=== PATIENT | female | born 1980 | race Caucasian/White ===

== ENCOUNTER 2022-07-25 07:38 | Outpatient (CLI) | payer BC, SELFPAY ==
[2022-07-25 08:16] LABS: Basophils Absolute Auto 0.1 K/mm3 (0.0-0.1); Basophils Percent Auto 1.1 % (0.2-1.2); Eosinophils Absolute Auto 0.1 K/mm3 (0-0.3); Eosinophils Percent Auto 2.4 % (0-4.4); Hematocrit 41.9 % (37.0-47.0); Hemoglobin 13.4 g/dL (12.0-15.0); Immature Granulocyte Absolute 0.01 K/mm3 (0.00-0.031); Immature Granulocyte Percent A 0.2 % (0-0.5); Lymphocytes Absolute Auto 1.32 K/mm3 (0.9-3.2); Lymphocytes Percent Auto 28.4 % (18.3-44.2); Mean Corpuscular Hemoglobin 29.3 pg (26-34); Mean Corpuscular Volume 91.5 fl (80-100); Mean Platelet Volume 8.8 fl (7.4-10.4); Monocytes Absolute Auto 0.4 K/mm3 (0.1-0.6); Neutrophils Absolute Auto 2.8 K/mm3 (1.3-6.7); Neutrophils Percent Auto 59.9 % (45.5-73.1); Platelet Count Result 314 k/mm3 (150-375); Red Blood Count 4.58 M/mm3 (4.2-5.4); Red Cell Distribution Width 14.5 % (11.5-14.5); White Blood Count 4.7 K/mm3 (4.5-10.0)
[2022-07-25 08:33] LABS: Alanine Aminotransferase 12 U/L (6-35); Albumin Level 4.4 g/dL (3.5-5.1); Alkaline Phosphatase 80 U/L (38-126); Anion Gap 10 mmol/L (8-16); Aspartate Amino Transferase 18 U/L (14-36); Bilirubin,Total 0.3 mg/dL (0.2-1.3); Blood Urea Nitrogen 14 mg/dL (7-17); Calcium 8.9 mg/dL (8.4-10.2); Carbon Dioxide 28 mmol/L (22-30); Chloride 105 mmol/L (98-107); Estimated Glomerular Filt Rate > 60; Glucose 91 mg/dL (65-110); Potassium 4.5 mmol/L (3.4-5.0); Sodium 143 mmol/L (137-145)
== END 2022-07-25 07:39 | disposition home or self-care (01) ==
PROVIDERS: Visit Provider Obstetrics & Gynecology
DX: N92.0 Excessive and frequent menstruation with regular cycle (principal); Z01.818 Encounter for other preprocedural examination
CPT/HCPCS: 36415; 80053; 85025; 86850; 86900; 86901

== ENCOUNTER 2022-07-31 00:11 | Day surgery (SDC) | payer BC, SELFPAY ==
[2022-07-24 12:14] VITALS: BMI 27.1
--- NOTE | 2022-07-24 12:15 | PC.NURSE ---
Report to the Outpatient Waiting Room, entrance under the green pavilion located off [facility], at time _0700_ on date _[id number]_. Planned Procedure Time: _0900_. Time changes happen often and if your time is changed the preop area will call you the afternoon before. - You and your visitor will be asked to self-screen and do not enter if you have any COVID symptoms. - We encourage only one visitor and NO visitors under age 16 are allowed at this time. Your visitor will receive communication by the phone number that is given day of service. - The patient visitor is requested to social distance or may leave the building when not with patient due to restrictions. - A mask is required within the hospital. Patients may have clear liquids (water, carbonated beverages, clear teas, apple juice) until 3 hours prior to surgery with a maximum of 20 ounces. - No food from midnight until time of surgery Take the following medications with a SIP of water the morning of surgery: ____None Medications to discontinue per physician __Vitamin d3, Cranberry, [place] wort. Date to take last [id number]__[id number] Please no make-up, nail hungarian, hairspray, perfume, deodorant, or body powder the day of surgery. No jewelry (including any body piercings) or valuables the day of surgery, leave them at home. Please take a shower or bath the night before, or the morning of, surgery with an antibacterial soap. Wear comfortable, loose fitting clothing. - Jewelry must be removed prior to entering the operating room. Rings and piercings that are not removed may be cut off. - The hospital will not accept responsibility for valuables. - Please leave all valuables, including medications, at home the day of surgery. If you are going home after surgery, a licensed piledriver carpenter must drive you home. - NO public transportation without another adult. - We recommend that an adult stay with you for 24 hours following discharge. - We also recommend that you do not drive, make important decision, drink alcoholic beverages, or take any drugs that were not prescribed by your health care provider for at least 24 hours after your discharge time. Follow any additional instructions given to you from your surgeon. If you or anyone in your household have experienced Covid symptoms in the past week, please notify your surgeon or the nurse liaison at the phone number below for possible testing. Telephone instructions given to __Patient___and asked if any additional questions and then verbalized understanding. Patient advised to call surgeon office or pre surgery nurse liaison [phone] if any additional questions.
--- NOTE | 2022-07-30 13:58 | WPDANESEPPF ---
Anes - Initial Pre Proc Eval Procedure: Operation Date: 07/31/22 07:30 Proposed Procedures p Total Laparoscopic Hysterectomy with Bilateral Salpingo-Oophorectomy - Giselle Su MD Date/Time: 07/30/22 13:58 Surgeon: Giselle Su MD Pre Op Diagnosis: menorrhagia Patient Data Age: 42 Gender: F Height: 1.57 m Weight: 67.2 kg Allergies Allergy/AdvReac Type Severity Reaction Status Date / Time No Known Allergies Allergy Verified 07/24/22 11:59 Home Medications Medication Instructions Recorded Confirmed Type Silas's wort 300 mg tablet 300 mg PO HS 07/24/22 07/24/22 History cholecalciferol (vitamin D3) 25 25 mcg PO HS 07/24/22 07/24/22 History mcg (1,000 unit) capsule (Vitamin D3) cranberry 1,000 mg capsule 1,000 mg PO HS 07/24/22 07/24/22 History escitalopram oxalate 20 mg tablet 20 mg PO HS 07/24/22 07/24/22 History estradiol 0.05 mg-norethindrone 1 patch topical WEEKLY 07/24/22 07/24/22 History 0.14 mg/24 hr semiwkly transderm patch (CombiPatch) melatonin 10 mg tablet 40 mg PO HS 07/24/22 07/24/22 History sumatriptan succinate 50 mg tablet 25 mg PO DAILY PRN Migraine 07/24/22 07/24/22 History Headache valacyclovir 500 mg tablet 500 mg PO HS 07/24/22 07/24/22 History Patient hx anesthesia problems: none Family hx anesthesia problems: none Results Review: All pre-operative results and documents have been reviewed as part of the pre-operative evaluation. [facility] Past Medical History Medical History (Updated 07/30/22 @ 13:59 by Tomas Culver MD) Depression Endometriosis Fibroid uterus Overweight (BMI 25.0-29.9) Social History Social History Years smoked: 20 Smoking status: Former smoker Tobacco type: cigarettes Smoking end date: 07/24/15 Alcohol intake: current Drinks per week: 1 Living arrangements: with family Spiritual care concerns: No Anes - Eval Final PreProcedure Day of Procedure 07/30/22 13:58 Patient weight: overweight Heart: regular rate and rhythm Lungs: clear to auscultation and normal air movement Airway: Mallampati scale class II Neurological: alert and oriented Last oral intake: >/= 8 hours ASA classification: II Emergent: no Anesthetic plan: proceed Anesthesia type and monitoring: general ETT Results Review: All pre-operative results and documents have been reviewed as part of the pre-operative evaluation. Informed Consent: The patient's anesthetic plan and its attendant risks and benefits were discussed with the patient/family/POA. Questions were solicited and answers provided to the satisfaction of the patient/family/POA.
[2022-07-31] VITALS (12 sets, daily range): BP systolic 92–123; BP diastolic 51–81; PULSE 62–81; RESP 12–18; TEMP 36.6–36.9; O2SAT 94–100
[2022-07-31] MEDS: ACETAMINOPHEN 500 MG TABLET 1000 MG PO (07:06)
[2022-07-31] MEDS: KETOROLAC 15 MG/ML VIAL (*BKC) IV PUSH (07:06)
[2022-07-31] MEDS: LACTATED RINGERS 1,000 ML 30 ML IV CONT ×2 (07:07→09:30)
--- NOTE | 2022-07-31 07:21 | WPDHPUPDATE1 ---
History and Physical Update Update Date/Time: 07/31/22 07:21 History and Physical has been reviewed, including an updated exam of the patient. There are NO changes in the patient's condition. Risks, benefits, and alternatives have been discussed and questions answered. Patient agrees to proceed with procedure.
--- NOTE | 2022-07-31 07:24 | WPDHPUPDATE1 ---
History and Physical Update Update Date/Time: 07/31/22 07:24 History and Physical has been reviewed, including an updated exam of the patient. There are NO changes in the patient's condition. Risks, benefits, and alternatives have been discussed and questions answered. Patient agrees to proceed with procedure.
--- NOTE | 2022-07-31 07:25 | PM.IMHP ---
H&P: HPI History of Present Illness Date/Time: 07/31/22 07:25 Chief Complaint: Heavy vaginal bleeding Narrative: this patient is a 42-year-old female with severe menorrhagia and history of 2 endometrial ablations. Patient for several weeks has been bleeding heavily. Of last year she has had numerous episodes of heavy bleeding. She has failed 2 previous surgical attempts at treating menorrhagia. Patient has a history of medical treatment for menorrhagia that had failed as well. We discussed treatment in detail. We also talked about her recent ultrasound. There is some significant ultrasound finding such as increased vascularity of the upper endometrium. She has a normal endometrial biopsy. On the pelvic ultrasound there is also a intrauterine mass.We agreed to perform total laparoscopic hysterectomy and bilateral salpingo-oophorectomy. She understands injuries may occur that result in hospitalization, more surgery, and severe illness. She understands risk of hemorrhage and infection. Review of Systems Review of Systems: All systems reviewed & are unremarkable except as noted in HPI and below Constitutional: Constitutional: Denies chills, Denies fatigue, Denies fever(s) and Denies weakness Eyes: Eyes: Denies blurry vision, Denies change in vision, Denies loss of peripheral vision, Denies loss of vision, Denies other visual disturbances and Denies eye pain ENT: Denies vertigo, Denies dizziness, Denies hearing loss, Denies mouth pain, Denies nasal obstruction, Denies neck mass and Denies neck pain Cardiovascular: Cardiovascular: Denies chest pain, Denies diaphoresis, Denies syncope, Denies leg edema and Denies dyspnea Respiratory: Respiratory: Denies chest congestion, Denies cough, Denies hemoptysis, Denies dyspnea and Denies wheezing Gastrointestinal: Gastrointestinal: Denies abdominal pain, Denies constipation, Denies diarrhea, Denies nausea and Denies vomiting Genitourinary: Genitourinary: Denies hematuria, Denies change in libido, Denies nocturia, Denies genital lesions, Denies flank pain and Denies urinary urgency Musculoskeletal: Musculoskeletal: Denies abnormal gait, Denies back pain, Denies myalgias, Denies arthralgias, Denies joint swelling, Denies muscle weakness and Denies neck pain Integumentary/Breasts: Skin/Breast: Denies swelling, Denies breast pain, Denies breast mass, Denies dry skin, Denies nipple discharge, Denies unusual bruising and Denies jaundice Neurologic: Denies Neuro-related abnormal movements, Denies Abnormal speech present, Denies abnormal gait, Denies behavioral changes, Denies confusion, Denies vertigo, Denies dizziness, Denies syncope, Denies loss of vision, Denies memory loss, Denies convulsions and Denies weakness Psychiatric: Psychiatric: Denies abnormal sleep pattern, Denies behavioral changes, Denies change in libido, Denies confusion, Denies depression, Denies anhedonia and Denies memory loss Endocrine: Endocrine: Reports no additional endocrine complaints, Denies change in libido and Denies fatigue Hematologic/Lymphatic: Hematologic/Lymphatic: Reports no additional hematologic/lymphatic complaints Allergic/Immunologic: Allergic/Immunologic: Reports no additional allergic/immunologic complaints and Denies wheezing PMFSH Past Medical History Medical History (Updated 07/31/22 @ 07:27 by Giselle Su MD) Depression Endometriosis Fibroid uterus Overweight (BMI 25.0-29.9) Social History Social History Years smoked: 20 Smoking status: Former smoker Tobacco type: cigarettes Smoking end date: 07/24/15 Alcohol intake: current Drinks per week: 1 Living arrangements: with family Spiritual care concerns: No Meds Home Medications and Allergies Home Medications Medication Instructions Recorded Confirmed Type [place]'s wort 300 mg tablet 300 mg PO HS 07/24/22 07/24/22 History cholecalciferol (vitamin D3) 25 25 mcg PO HS 07/24/22 07/24/22 History mcg (1,000 unit) capsule (V
[2022-07-31] MEDS: ceFAZolin 2 GM/D5W 50 ML 2 GM/50 ML BAG IVPB (07:30)
[2022-07-31] MEDS: ceFAZolin SODIUM 1 GM VIAL ×2 (07:32→08:17)
--- NOTE | 2022-07-31 09:31 | W.PM.PROC2 ---
Procedure Note - Detailed Date of Procedure 07/31/22 Pre-op Diagnosis menorrhagia, uterine leiomyoma Post-op Diagnosis Same Procedure Performed Total laparoscopic hysterectomy and bilateral salpingo-oophorectomy. Surgeon Giselle Su MD Anesthesia General Indications menorrhagia Findings enlarged uterus with fibroids, normal-appearing tubes and ovaries. Description of Procedure This patient was taken to the operating room. She was prepped and draped in the dorsal lithotomy position after induction of general anesthesia. The uterine manipulator and Kathy cup were placed. This was done with a speculum and tenaculum. The speculum was placed. The cervix was grasped with a tenaculum. The stay sutures were placed at 3 and 9:00 a.m.. The stay sutures of 0 Vicryl were brought through the appropriately sized Kathy cup. The tip of the BETTY manipulator was placed in the intrauterine cavity. The cup was slid into place around the cervix and into the fornices. It was locked into place. The sutures were then wrapped around the handle and tied under tension. A 5 mm skin incision was made in the left upper quadrant the abdomen. A 5 mm trocar was inserted into the intrauterine cavity under direct visualization of the scope. Pneumoperitoneum was achieved. A left lower quadrant 11 mm incision was made with scalpel. An 11 mm trocar was inserted into the anterior abdominal cavity under direct visualization the scope. A 5 mm infraumbilical incision was made with a scalpel and a 5 mm trocar was inserted the intra-abdominal cavity under direct visualization of the scope. Bilateral ureteral lysis was performed. This was done from the pelvic brim down to the uterine artery. This was done with careful dissection using sharp and blunt dissection. The infundibulopelvic ligaments were isolated after identification of the ureters bilaterally. These infundibulopelvic ligaments were cauterized and transected with LigaSure cautery. The para ovarian tissue was cauterized and transected with LigaSure cautery bilaterally. Moving around the ovary into the broad ligament the tissue was cauterized transected with LigaSure cautery. The round ligaments were cauterized transected with LigaSure cautery this was all done in a bilateral fashion. In a stepwise fashion along the lateral aspects of the uterus the round ligament and broad ligaments were cauterized transected down to the level of the uterine arteries. A bladder flap was created in the bladder was moved distally to the end of the cervix and over the Kathy cup. The bilateral uterine arteries were cauterized and transected. Colpotomy was then performed. In a circumferential fashion the vagina was transected using unipolar cautery. The incision was made down on the Kathy cup. The uterus, cervix, fallopian tubes and ovaries were taken out through the vagina. A pneumo occluder was placed in the vagina. The vaginal cuff was closed with a 0 V lock suture in a running fashion. The pelvis was irrigated with copious amounts antibiotic irrigation. The ureters were again examined and found to be intact and flowing freely under the uterine arteries into the bladder. The bladder was intact. It was examined directly. The vagina was irrigated with Betadine solution after removal of the Pneumo occluder. The patient was taken to recovery room. She was stable condition. Sponge lap and needle counts were correct x2. Estimated Blood Loss 75 Drains Yes Packing No Pathology Yes Complications No immediate complications Condition Stable Disposition Floor
[2022-07-31] MEDS: fentaNYL CITRATE INJ (*CRX) 100 MCG/2 ML VIAL 25 MCG IV PUSH ×4 (10:03→10:24)
--- NOTE | 2022-07-31 11:02 | PC.NURSE ---
This patient, Laurita Fernandes, was received from PACU on 07/31/22 at 1102. Patient/family oriented to unit policies and routines
[2022-07-31] MEDS: DEXTROSE 5%/0.45% SOD CHL 1,000 ML 125 ML IV CONT ×2 (11:20→19:17)
[2022-07-31] MEDS: KETOROLAC 30 MG/ML VIAL (*BKC) IV PUSH ×2 (11:20→16:51)
[2022-07-31] MEDS: ESTRADIOL 7 DAY 0.1 MG PATCH TRANSDERM (12:17)
[2022-07-31] MEDS: SIMETHICONE 80 MG TAB.CHEW (13:52)
[2022-07-31] MEDS: HYDROcodone/acetaminophen (*CRX) 5-325 MG TABLET 1 TAB PO (13:53)
[2022-07-31] MEDS: ONDANSETRON INJ 4 MG/2 ML VIAL IV PUSH (17:55)
[2022-07-31] MEDS: valACYclovir HCL 500 MG TABLET PO (21:11)
[2022-07-31] MEDS: ESCITALOPRAM OXALATE 10 MG TABLET 20 MG PO (21:11)
[2022-08-01] VITALS: BP 99/59; PULSE 81; RESP 18; TEMP 36.8
[2022-08-01] MEDS: IBUPROFEN 600 MG TABLET PO ×2 (00:27→10:40)
[2022-08-01] MEDS: ONDANSETRON INJ 4 MG/2 ML VIAL IV PUSH (00:27)
[2022-08-01] MEDS: MELATONIN 5 MG TABLET 40 MG PO (00:27)
[2022-08-01 04:00] VITALS: BP 100/52; PULSE 84; RESP 18; TEMP 36.9
[2022-08-01] MEDS: SUMAtriptan SUCCINATE 25 MG TABLET PO (07:46)
[2022-08-01 07:50] VITALS: BP 105/56; PULSE 59; RESP 18; TEMP 37.1; O2SAT 96
--- NOTE | 2022-08-01 09:19 | PM.GYNPNOP ---
ELEMENTARY SCHOOL DIRECTOR - A/P Postoperative Procedures: Procedures Operation Date: 07/31/22 07:30 Actual Procedure Side Surgeon p Total Laparoscopic Hysterectomy with Bilateral Salpingo-Oophorectomy Bilateral Giselle Su MD Postoperative day: 1 Postoperative status: doing well Postoperative plan: see orders Time Spent With Patient Time: Total time spent is greater than 50% in coordination of care (as documented) at patient's floor/unit and/or counseling patient: Time with patient: less than 15 minutes ELEMENTARY SCHOOL DIRECTOR- PN:Subj Post-Op Subjective Date/time seen: 08/01/22 09:19 Subjective: patient reports feeling better, patient has no complaints and pain is well controlled Exam Const: General: healthy appearing, comfortable and no acute distress Resp: Auscultation: clear to auscultation bilaterally, no rales, no rhonchi and no wheezes Cardio: Rate: regular rate Heart sounds: no click, no murmurs and no rubs GI: Inspection: non-distended Auscultation: normal bowel sounds Extrem: General: normal to inspection, no pedal edema and no calf tenderness ELEMENTARY SCHOOL DIRECTOR - PN: Obj Data Vital Signs Vital Signs: Vital Signs - 24 hr 07/31/22 09:30 07/31/22 09:45 07/31/22 09:55 Temperature 98.1 F Pulse Rate 68 62 62 Respiratory Rate 14 15 12 Blood Pressure 123/71 104/59 L 100/65 Pulse Oximetry 99 100 100 Oxygen Delivery Simple Face Mask Simple Face Mask Simple Face Mask Oxygen Flow Rate 8 8 8 07/31/22 10:10 07/31/22 10:25 07/31/22 10:40 Temperature 98.4 F Pulse Rate 71 77 80 Respiratory Rate 14 14 14 Blood Pressure 100/58 L 97/55 L 99/64 L Pulse Oximetry 95 94 94 Oxygen Delivery Room Air Room Air Room Air Oxygen Flow Rate 07/31/22 10:50 07/31/22 11:10 07/31/22 16:30 Temperature 98.5 F 97.9 F Pulse Rate 80 76 69 Respiratory Rate 14 16 16 Blood Pressure 101/56 L 103/59 L 92/51 L Pulse Oximetry 95 96 99 Oxygen Delivery Room Air Oxygen Flow Rate 07/31/22 17:55 07/31/22 20:02 07/31/22 20:00 Temperature 98.1 F Pulse Rate 76 76 Respiratory Rate 18 Blood Pressure 102/51 L Pulse Oximetry Oxygen Delivery Room Air Oxygen Flow Rate 08/01/22 00:00 08/01/22 00:00 08/01/22 04:00 Temperature 98.2 F 98.4 F Pulse Rate 81 84 Respiratory Rate 18 18 Blood Pressure 99/59 L 100/52 L Pulse Oximetry Oxygen Delivery Room Air Oxygen Flow Rate 08/01/22 04:00 Temperature Pulse Rate Respiratory Rate Blood Pressure Pulse Oximetry Oxygen Delivery Room Air Oxygen Flow Rate Intake/Output Intake/Output: Intake & Output 07/29/22 07/30/22 07/31/22 08/01/22 23:59 23:59 23:59 23:59 Intake Total 2790 1500 Output Total 480 1400 Balance 2310 100 Meds/Results Medications: Active Medications Generic Name Dose Route Start Last Admin Trade Name Freq PRN Reason Stop Dose Admin Hydrocodone Bitart/Acetaminophen 1 tab 07/31/22 10:53 07/31/22 13:53 Hydrocodone/Acetaminophen (*Crx) 5-325 Mg Tablet PO 1 tab Q3H PRN Administration Pain Rated 5 or Less Hydrocodone Bitart/Acetaminophen 1 tab 07/31/22 10:53 Hydrocodone/Acetaminophen (*Crx) 10-325 Mg Tablet PO Q3H PRN Pain Rated 6 or Greater Escitalopram Oxalate 20 mg 07/31/22 21:00 07/31/22 21:11 Escitalopram Oxalate 10 Mg Tablet PO 20 mg HS ALEJANDRO Administration Estradiol 0.1 mg 07/31/22 10:53 07/31/22 12:17 Estradiol 7 Day 0.1 Mg Patch TRANSDERM 0.1 mg WEEKLY ALEJANDRO Administration Ibuprofen 600 mg 07/31/22 10:53 08/01/22 00:27 Ibuprofen 600 Mg Tablet PO 600 mg Q6H PRN Administration Cramping Ketorolac Tromethamine 30 mg 07/31/22 10:53 07/31/22 16:51 Ketorolac 30 Mg/Ml Vial (*Bkc) IV PUSH 08/05/22 10:52 30 mg Q6H PRN Administration Pain Rated 4-6 Melatonin 40 mg 07/31/22 21:00 08/01/22 00:27 Melatonin 5 Mg Tablet PO 40 mg HS ALEJANDRO Administration Naloxone HCl 0.1 mg 07/31/22 10:53 Naloxone Hcl 0.4 Mg/Ml Vial IV PUSH Q2M PRN Respi
--- NOTE | 2022-08-01 10:39 | WPDANESPN ---
Anes - Prog Note Post-Op Date/Time: 08/01/22 10:39 Cardiovascular status: normal Respiratory status: normal Airway patency: baseline Mental status: baseline Post-Op hydration status: normal Vital Signs: Last Vital Signs Temp 37.1 C 08/01/22 07:50 Pulse 59 L 08/01/22 07:50 Resp 18 08/01/22 07:50 BP 105/56 L 08/01/22 07:50 Pulse Ox 96 08/01/22 07:50 O2 Del Method Room Air 08/01/22 04:00 O2 Flow Rate 8 07/31/22 09:55 Pain Score (VAS): 0 I/O: Intake & Output 07/31/22 08/01/22 08/01/22 23:59 07:59 15:59 Intake Total 1740 1500 Output Total 200 1400 Balance 1540 100 Patient Feedback: Patient satisfied with anesthetic care.
== END 2022-08-01 11:03 | disposition home or self-care (01) ==
LOC: ANHSURGERY 07:02 → ANHOB2 10:58
PROVIDERS: Visit Provider Obstetrics & Gynecology
PROC: 0UT9FZZ Resection of Uterus, Via Natural or Artificial Opening With Percutaneous Endoscopic Assistance (ICD-10-PCS; CPT 58571; principal; 2022-07-31 07:30)
DX: N92.0 Excessive and frequent menstruation with regular cycle (principal); D27.1 Benign neoplasm of left ovary; N80.00 Endometriosis of the uterus, unspecified; D25.9 Leiomyoma of uterus, unspecified; N72 Inflammatory disease of cervix uteri; F32.A Depression, unspecified; Z87.891 Personal history of nicotine dependence
CPT/HCPCS: 58571; 88307; 99199; A9270; J0690; J1100; J1885; J2250; J2270; J2405; J2704; J2710; J3010; J7030; J7120

== ENCOUNTER 2022-08-03 10:10 | Emergency (ER) | payer BC, SELFPAY ==
--- NOTE | ~2022-08-03 | US_ITS ---
EXAMINATION: US venous doppler [facility] DATE: 08/03/2022 11:06 INDICATION: Lower limb edema. TECHNIQUE: Grayscale ultrasound images without and with compression and Doppler ultrasound images of the bilateral lower extremity veins were obtained. COMPARISON: None. FINDINGS: The visualized portions of right common femoral vein, profunda (deep) femoral vein, femoral vein, pop liteal vein, peroneal veins, posterior tibial veins, and greater saphenous vein outflow are patent. The visualized portions of left common femoral vein, profunda femoral vein, femoral vein, popliteal v ein, peroneal veins, posterior tibial veins, and greater saphenous vein outflow are patent. IMPRESSION: 1. No deep venous thrombosis. Reviewed, dictated and finalized at location A. [employer]
--- NOTE | ~2022-08-03 | XR_ITS ---
XR chest 2V 08/03/2022 11:57 Indication: Upper chest pain. Recent hysterectomy. Procedure: 2 view chest Comparison: No prior studies for comparison. Findings: Heart size normal. Right basilar atelectasis. No focal pneumonia, edema, pleural effusion o r pneumothorax. There is free intraperitoneal air, consistent with recent hysterectomy. Impression: 1: Right basilar atelectasis. 2: Free intraperitoneal air consistent with recent hysterectomy. Reviewed, dictated and finalized at location A. [facility] Impression: 1: Right basilar atelectasis. 2: Free intraperitoneal air consistent with recent hysterectomy.
[2022-08-03 10:13] VITALS: BP 130/81; PULSE 79; RESP 16; TEMP 36.7; O2SAT 99
--- NOTE | 2022-08-03 11:39 | ED.GENADULT ---
HPI - General Adult General Chief complaint: Extremity Injury, Lower Stated complaint: leg pain Time Seen by Provider: 08/03/22 11:04 History of Present Illness HPI narrative: 42-year-old female presenting to the emergency department for evaluation of intermittent chest pain and lower extremity pain and swelling. Patient had a hysterectomy on Saturday. Patient states she was having intermittent chest pain and patient was also concerned about lower extremity swelling and pain. Patient denies any associated shortness of breath. Patient denies any associated nausea vomiting diarrhea. Patient states that her abdomen has been healing as expected. Related Data Home Medications Medication Instructions Recorded Confirmed Donahue's wort 300 mg tablet 300 mg PO HS 07/24/22 07/31/22 cholecalciferol (vitamin D3) 25 25 mcg PO HS 07/24/22 07/31/22 mcg (1,000 unit) capsule (Vitamin D3) cranberry 1,000 mg capsule 1,000 mg PO HS 07/24/22 07/31/22 escitalopram oxalate 20 mg tablet 20 mg PO HS 07/24/22 07/31/22 melatonin 10 mg tablet 40 mg PO HS 07/24/22 07/31/22 sumatriptan succinate 50 mg tablet 25 mg PO DAILY PRN Migraine 07/24/22 07/31/22 Headache valacyclovir 500 mg tablet 500 mg PO HS 07/24/22 07/31/22 Allergies Allergy/AdvReac Type Severity Reaction Status Date / Time No Known Allergies Allergy Verified 08/03/22 10:16 Review of Systems Review of Systems: CONSTITUTIONAL: Denies fever, chills, or sweats. EYES: Denies visual changes, redness, or discharge. ENT: Denies rhinorrhea, congestion, sore throat, or otalgia. CARDIOVASCULAR: Denies chest pain, palpitations, or edema. RESPIRATORY: Denies cough or dyspnea. GASTROINTESTINAL: Denies abdominal pain, nausea, vomiting, or diarrhea. GENITOURINARY: Denies dysuria or hematuria. SKIN: Denies rash or itching. MUSCULOSKELETAL: See HPI NEUROLOGIC: Denies headache, numbness, or weakness. [facility] Past Medical History Medical History (Updated 08/03/22 @ 12:32 by Malcolm Clement MD) Depression Endometriosis Fibroid uterus Overweight (BMI 25.0-29.9) Social History Social History Years smoked: 20 Smoking status: Former smoker Tobacco type: cigarettes Smoking end date: 07/24/15 Alcohol intake: current Drinks per week: 1 Spiritual care concerns: No Exam Narrative: APPEARANCE: Well appearing, no pain, no distress, well-nourished. HEAD: normocephalic, atraumatic. EYES: PERRLA/EOMI, conjunctivae clear. NOSE: Normal no drainage NECK: Supple. No adenopathy, no masses. RESPIRATORY: Airway patent, respirations nonlabored. Clear to auscultation bilaterally, no rales, rhonchi, wheezing. CARDIOVASCULAR: Regular rate and rhythm without murmurs rubs or gallops. ABDOMINAL: Soft, nontender, nondistended, normal bowel sounds MUSCULOSKELETAL: Moves all extremities. Mild lower extremity tenderness to palpation. No erythema. No significant swelling NEURO: Alert. Cranial nerves II through XII intact. Grossly intact SKIN: Warm, dry. Normal Color. Abdominal trocar sites are well-appearing. Minimal tenderness to palpation Course Course Emergency Course: Patient had negative chest x-ray and negative venous Doppler study. No concern for DVT. Low clinical concern for pulm embolism. Patient was updated on results of her work-up and was comfortable with the plans for discharge and close follow-up. Vital Signs Vital signs: Vital Signs Temperature 98.1 F 08/03/22 10:13 Pulse Rate 79 08/03/22 10:13 Respiratory Rate 16 08/03/22 10:13 Blood Pressure 130/81 08/03/22 10:13 Pulse Oximetry 99 08/03/22 10:13 Oxygen Delivery Room Air 08/03/22 10:13 Temperature 98.1 F 08/03/22 10:13 Pulse Rate 78 08/03/22 13:05 Respiratory Rate 18 08/03/22 13:05 Blood Pressure 132/84 08/03/22 13:05 Pulse Oximetry 99 08/03/22 13:05 Oxygen Delivery Room Air 08/03/22 10:13 Medical Decision Making Vital Signs Vital Signs: Vital Signs Tem
[2022-08-03 13:05] VITALS: BP 132/84; PULSE 78; RESP 18; O2SAT 99
== END 2022-08-03 13:07 | disposition home or self-care (01) ==
PROVIDERS: Emergency Provider Emergency Medicine
DX: M79.89 Other specified soft tissue disorders (principal); Z87.891 Personal history of nicotine dependence
CPT/HCPCS: 71046; 93970; 99284